=== PATIENT | male | born 1945 | race Caucasian/White ===

== ENCOUNTER → 2020-11-30 | Outpatient (CLI) | payer MEDICARE, BC ==
--- NOTE | 2020-11-30 15:17 | RAD ---
XR CHEST 2V History: Reason: LOWER RESPIRATORY INFECTION / Spl. Instructions: / History: Comparison: None. Findings: No consolidation or pleural effusion. Normal heart size. No pneumothorax. Calcified right lower lung pulmonary nodule, likely prior granulomatous disease. Impression: 1. No acute cardiopulmonary process. Electronically signed by: Michael Booker DO (11/30/2020 3:14 PM) [id number]
== END ==
LOC: RAD 14:49
PROVIDERS: ATTEND Internal Medicine
DX: R91.1 Solitary pulmonary nodule (principal); J22 Unspecified acute lower respiratory infection
CPT/HCPCS: 71046